=== PATIENT | female | born 2000 | race African-American/Black ===

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

== ENCOUNTER → 2021-01-01 | Outpatient (CLI) | payer OTHER ==
[2021-01-01 16:40] LABS: BASO # 0.1 10*3/uL (0.0-0.1); BASO % 0.7 % (0.0-1.0); EOS # 0.1 10*3/uL (0.0-0.4); EOS % 1.3 % (1.0-4.0); LYMPH # 2.6 10*3/uL (1.3-4.4); LYMPH % 33.3 % (27.0-41.0); MEAN CELL VOLUME 88.9 fl (81.0-99.0); MEAN CORPUSCULAR HGB 28.7 pg (27.0-31.0); MEAN CORPUSCULAR HGB CONC 32.3 g/dl (33.0-37.0); MEAN PLATELET VOLUME 9.7 fl (9.6-12.3); MONO # 0.4 10*3/uL (0.1-1.0); MONO % 4.9 % (3.0-9.0); NEUT # 4.6 10*3/uL (2.3-7.9); NEUT % 59.5 % (47.0-73.0); PLATELET COUNT AUTOMATED 334 10*3/uL (130-400); RED CELL DISTRI WIDTH 12.6 % (0-14.5); WHITE BLOOD COUNT 7.7 10*3/uL (4.8-10.8)
[2021-01-01 17:10] LABS: ALBUMIN 3.6 gm/dl (3.1-4.5); ALKALINE PHOSPHATASE 104 U/L (45-117); BUN 7 mg/dl (7-24); CHLORIDE 111 mmol/L (98-107); CHOLESTEROL 133 mg/dL (<200); CREATININE 0.81 mg/dL (0.55-1.02); POTASSIUM 4.4 mmol/L (3.5-5.1); SGOT/AST 32 IU/L (3-35); SGPT/ALT 74 U/L (12-78); SODIUM 140 mmol/L (136-145); TOTAL PROTEIN 7.3 gm/dL (6.4-8.2); TRIGLYCERIDES 141 mg/dl (<150)
[2021-01-05 04:06] LABS: ZINC, PLASMA 111 ug/dL (44-115)
== END | disposition home or self-care (01) ==
LOC: LAB 16:19
PROVIDERS: ATTEND Physician Assistant
DX: E46 Unspecified protein-calorie malnutrition (principal); E66.01 Morbid (severe) obesity due to excess calories; E55.9 Vitamin D deficiency, unspecified

== ENCOUNTER → 2021-04-19 | Outpatient (CLI) | payer OTHER | END | disposition home or self-care (01) | LOC: LAB 14:27 | PROVIDERS: ATTEND Physician Assistant | DX: Z02.6 Encounter for examination for insurance purposes (principal); Z78.9 Other specified health status ==

== ENCOUNTER 2021-06-04 14:15 | Emergency (ER) | payer OTHER ==
[2021-06-04] MEDS ORDERED: PREDNISONE20 M1 PO (15:06)
[2021-06-04] MEDS ORDERED: ZITHROMAX250 MG PO (15:06)
== END 2021-06-04 15:45 | disposition home or self-care (01) ==
LOC: ED 14:15
DX: J02.9 Acute pharyngitis, unspecified (principal); H92.02 Otalgia, left ear; R09.89 Other specified symptoms and signs involving the circulatory and respiratory systems; G43.909 Migraine, unspecified, not intractable, without status migrainosus; Z88.0 Allergy status to penicillin; Z88.1 Allergy status to other antibiotic agents; Z88.8 Allergy status to other drugs, medicaments and biological substances

== ENCOUNTER 2021-08-01 15:28 | Emergency (ER) | payer OTHER ==
[~2021-08-01] VITALS: Wt 108.9 kg
[~2021-08-01 15:28] MED LIST changes: +PREDNISONE20 M1 PO
[2021-08-01] MEDS ORDERED: CEFUROXIME AXE500 MG PO (16:11)
[2021-08-01] MEDS ORDERED: DOXYCYCLINE HY100 M3 PO (16:11)
== END 2021-08-01 16:18 | disposition home or self-care (01) ==
LOC: ED 15:28
DX: S50.861A Insect bite (nonvenomous) of right forearm, initial encounter (principal); L03.113 Cellulitis of right upper limb; Z88.0 Allergy status to penicillin; Z88.8 Allergy status to other drugs, medicaments and biological substances; Z88.1 Allergy status to other antibiotic agents; W57.XXXA Bitten or stung by nonvenomous insect and other nonvenomous arthropods, initial encounter; Y93.89 Activity, other specified; Y92.89 Other specified places as the place of occurrence of the external cause; Y99.8 Other external cause status

== ENCOUNTER 2024-11-28 01:20 | Emergency (ER) | payer MEDICAID ==
[~2024-11-28] VITALS: Ht 165.1 cm; Wt 111.1 kg
[~2024-11-28 01:20] MED LIST changes: +CEFUROXIME AXE500 MG PO; +DOXYCYCLINE HY100 M3 PO
[2024-11-28 01:54] LABS: BILIRUBIN Negative (Negative); BLOOD Negative (Negative); CLARITY Clear (Clear); COLOR Yellow (Yellow); KETONE Negative (Negative); LEUKO ESTERASE Negative (Negative); NITRITE Negative (Negative); PH 6.0 (4.5-8.0); SPECIFIC GRAVITY <= 1.005 (1.001-1.030); UROBILINOGEN 0.2 E.U./dl (0.0-1.0)
[2024-11-28 02:06] LABS: BACTERIA TRACE; MUCOUS TRACE; RBC 0-2 rbc/hpf (0-2)
== END 2024-11-28 02:42 | disposition home or self-care (01) ==
LOC: ED 01:20
PROVIDERS: Internal Medicine
DX: O26.892 Other specified pregnancy related conditions, second trimester (principal); M54.50 Low back pain, unspecified; E66.9 Obesity, unspecified; Z88.0 Allergy status to penicillin; Z88.6 Allergy status to analgesic agent; Z88.1 Allergy status to other antibiotic agents; Z88.8 Allergy status to other drugs, medicaments and biological substances; Z79.899 Other long term (current) drug therapy; Z68.30 Body mass index [BMI] 30.0-30.9, adult; Z3A.17 17 weeks gestation of pregnancy